=== PATIENT | male | born 1985 | race Caucasian/White ===

== ENCOUNTER 2017-04-06 15:15 | Inpatient (IN) | payer MEDICARE ==
--- NOTE | ~2017-04-06 | PN ---
Unit #: [id number] #: [id number] Patient: AMAN MCQUEEN [id number] [facility] [address] [place] [address] [id number] I MR#: [id number] NAME: AMAN MCQUEEN ROOM: P210 Age: 31 Sex: M Admission Date: 04/06/2017 : 1985 Attending Physician: Brennen Capps M.D. Admitting Physician: Brennen Capps M.D. Primary Care Physician: Primary Care Physician Alyssa MONTES DE OCA PROGRESS NOTES DATE 04/09/2017 DISCUSSION The patient is in somewhat brighter spirits today and is more active within the therapeutic milieu. He is expressing interest in going to the [facility] upon his discharge from the hospital and no longer seems interested in [facility] dual diagnosis residential treatment. Should he sustain progress discharge should take place within the next day or so. Dictated by... Brennen Capps M.D. CB/stephane TD: 04/09/2017 22:31 JOB #: [id number] [facility] PROGRESS NOTES Page 1 of 1 X Brennen Capps MD X PROGRESS NOTE
--- NOTE | ~2017-04-06 | PA ---
Unit #: [id number] #: [id number] Patient: AMAN MCQUEEN [id number] [place] [address] [id number] I MR#: [id number] NAME: AMAN MCQUEEN ROOM: P210 Age: 31 Sex: M Admission Date: 04/06/2017 : 1985 Date of Assessment: 04/07/2017 Attending Physician: Brennen Capps M.D. Admitting Physician: Brennen Capps M.D. Primary Care Physician: Primary Care Physician No PSYCHIATRIC ASSESSMENT IDENTIFYING INFORMATION The patient is a 31-year-old white male admitted to the [address] [place] [address] Unit with a history of polysubstance dependence. CHIEF COMPLAINT None given. INFORMANT(S) Patient, reliability is poor. HISTORY OF PRESENT ILLNESS The patient is a 31-year-old white male admitted with increasing substance use. The patient reports that he has been using heroin, methamphetamine, and alcohol. The patient reports a wish to go for residential chemical dependence treatment. He is denying suicidal or homicidal ideation. He was last discharged from this facility in August of 2015. The patient reports that his father has been supportive. He does report previous attempts at suicide but is currently denying suicidal or homicidal ideation. When seen today, the patient is resting comfortably and cannot be aroused for interview. PAST PSYCHIATRIC HISTORY The patient is reportedly prescribed Depakote (1) __ prescription on 03/05/2017. ALLERGIES Risperdal. FAMILY HISTORY Noncontributory. SOCIAL HISTORY The patient lives with his father. He is reportedly disabled secondary to psychiatric illness. MENTAL STATUS EXAMINATION Examination at this time reveals the patient to be a soundly sleeping white male. Multiple attempts to arouse him are unsuccessful. ASSETS AND LIABILITIES The patient's assets are to be assessed. Liabilities: Lack of resources. DIAGNOSTIC IMPRESSION Unit #: [id number] #: [id number] Patient: AMAN MCQUEEN 1. Schizoaffective disorder by history. 2. Alcohol use disorder. 3. Opioid use disorder. 4. Methamphetamine use disorder. TREATMENT PLAN The patient remains hospitalized for safety and stabilization. Routine detoxification protocol has been initiated. The patient will participate in appropriate order of milieu activities. ESTIMATED LENGTH OF STAY 5 to 7 days. I will ask the patient's medical social consultant to see him regarding possible referral for residential chemical dependence treatment. Dictated by... Ramirez Cisneros TD: 04/07/2017 12:46 JOB #: [id number] PSYCHIATRIC ASSESSMENT Page 1 of 1 X Brennen Capps MD X PSYCHIATRIC ASSESSMENT
--- NOTE | ~2017-04-06 | PN ---
Unit #: [id number] #: [id number] Patient: AMAN MCQUEEN [id number] [facility] [address] [place] [address] [id number] I MR#: [id number] NAME: AMAN MCQUEEN ROOM: P210 Age: 31 Sex: M Admission Date: 04/06/2017 : 1985 Attending Physician: Brennen Capps M.D. Admitting Physician: Brennen Capps M.D. Primary Care Physician: Primary Care Physician Alyssa MONTES DE OCA PROGRESS NOTES DATE 04/08/2017 DISCUSSION The patient is in brighter spirits today and is active within the therapeutic milieu. He is compliant with medications and figueredo routine and exhibits little in the way of signs or symptoms of withdrawal. He is expressing interest in dual diagnosis residential treatment and I will ask nursing home social worker to see him regarding possible referral to [facility]. Dictated by... Brennen Capps M.D. CB/stephane TD: 04/09/2017 03:38 JOB #: [id number] [facility] PROGRESS NOTES Page 1 of 1 X Brennen Capps MD PROGRESS NOTE
--- NOTE | ~2017-04-06 | DS ---
Unit #: [id number] #: [id number] Patient: AMAN MCQUEEN [id number] [facility] [address] [place] [address] [id number] MR#: [id number] NAME: AMAN MCQUEEN ROOM: P210 Age: 31 Sex: M Admission Date: 04/06/2017 : 1985 Discharge Date: 04/10/2017 Attending Physician: Brennen Capps M.D. Primary Care Physician: Primary Care Physician No DISCHARGE SUMMARY REASON FOR ADMISSION The patient is a 31-year-old white male with history of schizoaffective disorder and abuse of heroin, methamphetamine, and alcohol. HOSPITAL COURSE The patient was admitted to the [address] [place] [address] unit and continued on previously prescribed Depakote 500 mg b.i.d. given his complaints of psychosis. He was begun on Zyprexa 10 mg at h.s. and tolerated this medication well. His detox was a fairly uneventful one and by 04/10/2017, the patient had made arrangements to go to "the [facility]" for continued chemical dependency treatment. Discharge was ordered. FINAL DIAGNOSES Schizoaffective disorder; alcohol use disorder; methamphetamine use disorder; opioid use disorder. DISPOSITION ON DISCHARGE The patient is discharged on the following medications: Zyprexa 10 mg at bedtime for psychosis, Depakote 500 mg b.i.d. for mood stabilization. DISCHARGE INSTRUCTIONS No dietary or physical restrictions were placed upon the patient at the time of discharge. FOLLOWUP Followup will take place through the auspices of the [facility] and community mental health resources. PROGNOSIS The patient's prognosis is considered fair. Dictated by... Brennen Capps M.D. CB/fahad TD: 04/10/2017 15:38 JOB #: [id number] Unit #: [id number] #: [id number] Patient: AMAN MCQUEEN DISCHARGE SUMMARY Page 1 of 1 X Brennen Capps MD X DISCHARGE SUMMARY
--- NOTE | ~2017-04-06 | HP ---
Unit #: [id number] #: [id number] Patient: AMAN MCQUEEN [id number] [place] [address] [id number] I MR#: [id number] NAME: AMAN MCQUEEN ROOM: P210 Age: 31 Sex: M Admission Date: 04/06/2017 : 1985 Attending Physician: Brennen Capps M.D. Admitting Physician: Brennen Capps M.D. Primary Care Physician: Primary Care Physician No HISTORY AND PHYSICAL HISTORY OF PRESENT ILLNESS The patient is a 31-year-old male admitted to [address] [place] [address] on 04/06/2017 for substance abuse. PAST MEDICAL HISTORY 1. Polysubstance use. 2. Asthma. 3. COPD. 4. Nicotine dependence. PAST SURGICAL HISTORY The patient denies. SOCIAL HISTORY He is unemployed. He is disabled. He lives with his girlfriend, smokes 1 1/2 packs of cigarettes daily, drinks a pint of alcohol per day and uses marijuana, heroin and methamphetamines on a daily basis. FAMILY MEDICAL HISTORY Noncontributory. ALLERGIES Risperidone. CURRENT MEDICATIONS The patient is not on any home medications. REVIEW OF SYSTEMS CONSTITUTIONAL: No fever or chills. HEENT: Denies any sore throat, ear pain or runny nose. CARDIOVASCULAR: Denies chest pain, irregular heart rhythm or palpitations. CHEST: Denies shortness of breath or cough. No hemoptysis. GASTROINTESTINAL: Denies nausea, vomiting, diarrhea or chronic constipation. ENDOCRINE: Denies history of increased thirst or urination. No recent significant weight loss or gain. GENITOURINARY: Denies dysuria, frequency, or hematuria. SKIN: Denies any rashes. HEMATOLOGIC: Denies history of increased bleeding or bruising. MUSCULOSKELETAL: Denies any hot, swollen joints. No generalized muscle pain. NEUROLOGIC: Denies problems with vision or speech. No frequent, severe headaches. No numbness, tingling or weakness in any extremities. Denies Unit #: [id number] #: [id number] Patient: AMAN MCQUEEN loss of bladder or bowel control. PHYSICAL EXAM GENERAL: He is awake, alert and oriented in no acute distress. VITAL SIGNS: Temperature 97.4, heart rate 85, respiration 18, blood pressure 122/75. HEIGHT: 5'11". WEIGHT: 187 pounds. SKIN: Warm and dry without rash or lesion. HEENT: Normocephalic. TMs not viewed. Oral and nasal passages clear. Conjunctivae clear. PERRLA. EOMs intact. NECK: Supple without lymphadenopathy or thyromegaly. HEART: Regular rate and rhythm without murmur. LUNGS: Clear. ABDOMEN: Soft, nontender. : Not done. EXTREMITIES: No evidence of cyanosis, clubbing or edema. Moves all without focal deficit. NEUROLOGICAL: Grossly within normal limits. Cranial Nerves: II: Visual temple are intact. III, IV AND : Extraocular movements are intact. Pupils are equal, round and reactive to light. V: Facial sensation is grossly normal. VII: Facial movements and expression are normal. VIII: Auditory acuity grossly intact. IX, X: Uvula is midline. Phonation is normal. XI: Patient shrugs shoulders and turns head normally. XII: Tongue protrudes in the midline. Sensory and Motor Function: Sensory and motor sensation is grossly normal. Motor: moves all extremities well. IMPRESSION 1. Psychiatric admission. 2. Polysubstance use. 3. Asthma. 4. COPD. 5. Nicotine dependence. RECOMMENDATIONS Psychiatric per psychiatrist. MEDICAL: No contraindication to participate in facility activities. MEDICAL PROGNOSIS Good. MEDICAL CONDITION Stable. Dictated by... Sakina Thomas/stephane TD: 04/08/2017 00:15 Unit #: [id number] #: [id number] Patient: AMAN MCQUEEN JOB #: [id number] HISTORY AND PHYSICAL Page 1 of 1 X ESTELLA LEIGH APRN HISTORY AND PHYSICAL
[2017-04-07 12:15] LABS: BASOPHIL% 0.7 % (0-2.5); EOSINOPHIL# 0.2 X10e3 (0-0.7); EOSINOPHIL% 2.3 % (0.0-7.0); HEMATOCRIT 45.8 % (38.0-50.0); HEMOGLOBIN 15.3 gm/dL (13.0-16.0); LYMPHOCYTE# 1.9 X10e3 (1.0-3.5); LYMPHOCYTE% 28.1 % (17.0-45.0); MEAN CELL VOLUME 93.7 FL (83-96); MEAN CORPUSCULAR HEMOGLOBIN 31.3 PG (28-34); MEAN CORPUSCULAR HGB CONC 33.4 g/dL (30-36); MEAN PLATELET VOLUME 7.6 FL (6.5-11.5); MONOCYTE# 0.6 X10e3 (0-1.0); MONOCYTE% 9.1 % (3.0-12.0); NEUTROPHIL# 4.1 X10e3 (1.5-7.1); NEUTROPHIL% 59.8 % (40-75); PLATELET COUNT 259 X10e3 (140-420); RED BLOOD COUNT 4.89 X10e (3.90-5.60); RED CELL DISTRIBUTION WIDTH 12.9 % (11.0-15.5); WHITE BLOOD COUNT 6.9 X10e3 (4.0-10.5)
[2017-04-07 12:23] LABS: URINE APPEARANCE CLEAR; URINE BILIRUBIN NEG (NEG); URINE BLOOD NEG (NEG); URINE COLOR YELLOW; URINE GLUCOSE NEG (NEG); URINE KETONE NEG (NEG); URINE LEUKOCYTE ESTERASE NEG (NEG); URINE NITRATE NEG (NEG); URINE PH 6.5 (5-8); URINE PROTEIN NEG (NEG); URINE SPECIFIC GRAVITY 1.007 (1.003-1.035)
[2017-04-07 12:28] LABS: DIFF IND NO
[2017-04-07 12:39] LABS: ALBUMIN SERUM 3.6 g/dL (3.5-5.0); BILIRUBIN,TOTAL 0.4 mg/dL (0.2-2.0); BUN/CREATININE RATIO 7.77; CALCIUM SERUM 9.2 mg/dL (8.4-10.2); CREATININE SERUM 0.9 mg/dL (0.6-1.4); GLOM FILT RATE Estimated 114.2 mL/min (>60); POTASSIUM 4.4 mmol/L (3.5-5.1)
[2017-04-07 12:58] LABS: AMPHETAMINE POS (NEG); BARBITURATES NEG (NEG); BENZODIAZEPINES NEG (NEG); COCAINE NEG (NEG); MARIJUANA NEG (NEG); OPIATES NEG (NEG); TRICYCLIC ANTIDEPRESSANTS NEG (NEG); U METHADONE NEG (NEG)
== END 2017-04-10 14:20 | disposition home or self-care (01) | DRG 897 ==
LOC: P2S 17:16
PROVIDERS: Specialist
PROC: HZ2ZZZZ Detoxification Services for Substance Abuse Treatment (ICD-10-PCS; principal; 2017-04-06)
DX: F10.10 Alcohol abuse, uncomplicated (principal); F11.10 Opioid abuse, uncomplicated; F25.9 Schizoaffective disorder, unspecified; F15.10 Other stimulant abuse, uncomplicated; Z88.8 Allergy status to other drugs, medicaments and biological substances; Z91.5 Personal history of self-harm; J44.9 Chronic obstructive pulmonary disease, unspecified; F17.210 Nicotine dependence, cigarettes, uncomplicated
CPT/HCPCS: 80053; 80164; 80307; 81003; 85025; 86592

== ENCOUNTER 2017-04-12 17:00 | Inpatient (IN) | payer MEDICARE ==
--- NOTE | ~2017-04-12 | PA ---
Unit #: [id number] #: [id number] Patient: AMAN MCQUEEN [id number] [place] [address] [id number] I MR#: [id number] NAME: AMAN MCQUEEN ROOM: P176 Age: 31 Sex: M Admission Date: 04/12/2017 : 1985 Date of Assessment: 04/13/2017 Attending Physician: Brennen Capps M.D. Admitting Physician: Brennen Capps M.D. Primary Care Physician: Primary Care Physician No PSYCHIATRIC ASSESSMENT IDENTIFYING INFORMATION The patient is a 31-year-old white male just discharged from this facility reporting that he had recently relapsed on crack cocaine. He reported suicidal ideation at that time. INFORMANT(S) Patient and chart. RELIABILITY Fair. CHIEF COMPLAINT None given. HISTORY OF PRESENT ILLNESS The patient is a 31-year-old white male well known to this physician. He was just discharged from this facility earlier this week but apparently did not comply with prescribed medications or follow up. He had [facility] but did not do so and began using almost immediately. The patient was reporting positive auditory hallucinations and suicidal ideation at the time of admission. For a more complete history of present illness, please refer to previous dictated notes. PAST PSYCHIATRIC HISTORY Reviewed, no changes. FAMILY HISTORY/SOCIAL HISTORY Reviewed, no changes. MEDICAL HISTORY Reviewed, no changes. MEDICATION HISTORY 1. Depakote. 2. Zyprexa. ALLERGIES Risperdal. MENTAL STATUS EXAM At this time, reveals the patient to be a well-developed, well-nourished, disheveled white male appearing stated age. He is in no apparent physical Unit #: [id number] #: [id number] Patient: AMAN MCQUEEN distress at the time of examination. He is awake, alert, oriented in all spheres. His mood is dysphoric. His affect blunted. Speech is impoverished but generally relevant and coherent. There are no gross deficits in memory or cognition noted. Intelligence is judged to be in the average range based on fund of knowledge. The patient is cooperative throughout the interview. He is currently endorsing positive suicidal ideation. He denies homicidal ideation. He reports positive command hallucinations. His judgement and insight appear to be at baseline. ASSETS AND LIABILITIES Patient's assets to be assessed. Liabilities, lack of resources, ongoing substance use. ADMITTING DIAGNOSES 1. Cocaine use disorder. 2. Opioid use disorder. 3. Schizoaffective disorder. PSYCHIATRIC PLAN/TREATMENT GOALS The patient remains hospitalized for safety and stabilization. We will restart previously prescribed medications and will watch for any signs of withdrawal though none should be present given the brief time the patient was outside of the hospital. ESTIMATED LENGTH OF STAY Five to seven days. Dictated by... Brennen Capps M.D. TEGAN/beto TD: 04/13/2017 17:57 JOB #: [id number] PSYCHIATRIC ASSESSMENT Page 1 of 1 X Brennen Capps MD X PSYCHIATRIC ASSESSMENT
--- NOTE | ~2017-04-12 | DS ---
Unit #: [id number] #: [id number] Patient: AMAN MCQUEEN [id number] [facility] [address] [place] [address] [id number] MR#: [id number] NAME: AMAN MCQUEEN ROOM: [facility] Age: 31 Sex: M Admission Date: 04/12/2017 : 1985 Discharge Date: 04/16/2017 Attending Physician: Brennen Capps M.D. Primary Care Physician: Primary Care Physician No DISCHARGE SUMMARY REASON FOR ADMISSION The patient is a 31-year-old single white male admitted to the [address] [place] [address] with recurrence of opioid and methamphetamine use. HOSPITAL COURSE The patient was admitted to the [address] [place] [address] and continued on previous prescribed medications including Depakote and Zyprexa, Vistaril 50 mg q.6 hours p.r.n. anxiety was added. The patient's stay in the hospital was uneventful and he exhibited little in the way of signs or symptoms of withdrawal and by 04/06/2017 he requested discharge it was so ordered. FINAL DIAGNOSES 1. Schizoaffective disorder 2. Opioid use disorder 3. Methamphetamine use disorder DISPOSITION ON DISCHARGE The patient discharged on the following medication: 1. Depakote 500 mg twice daily for mood stabilization. 2. Zyprexa 10 mg nightly for psychosis. 3. Vistaril 50 mg q.6 hours for anxiety. No dietary or physical restrictions were placed on the patient at the time of discharge. Followup to take place through the auspices of community mental health resources. The patient's prognosis is considered fair. Dictated by... Brennen Capps M.D. CB/stephane TD: 04/17/2017 05:48 JOB #: [id number] Unit #: [id number] #: [id number] Patient: AMAN MCQUEEN DISCHARGE SUMMARY Page 1 of 1 X Brennen Capps MD X DISCHARGE SUMMARY
--- NOTE | ~2017-04-12 | PN ---
Unit #: [id number] #: [id number] Patient: AMAN MCQUEEN [id number] [facility] [address] [place] [address] [id number] MR#: [id number] NAME: AMAN MCQUEEN ROOM: P176 Age: 31 Sex: M Admission Date: 04/12/2017 : 1985 Attending Physician: Brennen Capps M.D. Admitting Physician: Brennen Capps M.D. Primary Care Physician: Primary Care Physician Alyssa MONTES DE OCA PROGRESS NOTES DATE 04/15/2017 DISCUSSION The patient is abed today. He is exhibiting little in the way or signs or symptoms of withdrawal and is beginning to push for discharge. I would suggest that he remain in the hospital for at least one further day and the patient is agreeabale. Dictated by... Brennen Capps M.D. CB/stephane TD: 04/15/2017 22:55 JOB #: [id number] [facility] PROGRESS NOTES Page 1 of 1 X Brennen Capps MD PROGRESS NOTE
--- NOTE | ~2017-04-12 | PN ---
Unit #: [id number] #: [id number] Patient: AMAN MCQUEEN [id number] [facility] [address] [place] [address] [id number] I MR#: [id number] NAME: AMAN MCQUEEN ROOM: 76 Age: 31 Sex: M Admission Date: 04/12/2017 : 1985 Attending Physician: Brennen Capps M.D. Admitting Physician: Brennen Capps M.D. Primary Care Physician: Primary Care Physician Alyssa MONTES DE OCA PROGRESS NOTES DATE 04/14/2017 DISCUSSION The patient reports upon his discharge from the hospital, he [facility] not [facility] because he "had to look after his girlfriend." He reports that he relapsed shortly thereafter but now states that he does plan to go to the [facility] upon his discharge from this facility. He is requesting Neurontin for anxiety. I have explained to the patient that this medication will not be ordered but will add p.r.n. Vistaril. Dictated by... Brennen Capps M.D. CB/beto TD: 04/14/2017 13:09 JOB #: [id number] [facility] PROGRESS NOTES Page 1 of 1 X Brennen Capps MD PROGRESS NOTE
--- NOTE | ~2017-04-12 | HP ---
Unit #: [id number] #: [id number] Patient: AMAN MCQUEEN [id number] [place] [address] [id number] MR#: [id number] NAME: AMAN MCQUEEN ROOM: P176 Age: 31 Sex: M Admission Date: 04/12/2017 : 1985 Attending Physician: Brennen Capps M.D. Admitting Physician: Brennen Capps M.D. Primary Care Physician: Primary Care Physician No HISTORY AND PHYSICAL HISTORY OF PRESENT ILLNESS Aman is a 31 year old admitted to [facility] because of his polysubstance abuse which includes IV methamphetamine and crack cocaine. PAST MEDICAL HISTORY 1. Long history of polysubstance abuse to include IV drugs. 2. Hepatitis C. PAST SURGICAL HISTORY Nothing reported. ALLERGIES Risperdal. SOCIAL HISTORY Smokes greater than 1 pack per day. Denies alcohol. Admits to a long history of illicit substance abuse to include crack cocaine and IV methamphetamine. FAMILY HISTORY Medically noncontributory. REVIEW OF SYSTEMS CONSTITUTIONAL: No fever or chills. HEENT: Denies any sore throat, ear pain or runny nose. CARDIOVASCULAR: Denies chest pain, irregular heart rhythm or palpitations. CHEST: Denies shortness of breath or cough. No hemoptysis. GASTROINTESTINAL: Denies nausea, vomiting, diarrhea or chronic constipation. ENDOCRINE: Denies history of increased thirst or urination. No recent significant weight loss or gain. GENITOURINARY: Denies dysuria, frequency, or hematuria. SKIN: Denies any rashes. HEMATOLOGIC: Denies history of increased bleeding or bruising. MUSCULOSKELETAL: Denies any hot, swollen joints. No generalized muscle pain. NEUROLOGIC: Denies problems with vision or speech. No frequent, severe headaches. No numbness, tingling or weakness in any extremities. Denies loss of bladder or bowel control. CURRENT MEDICATIONS 1. Milk of Magnesia p.r.n. 2. Maalox p.r.n. Unit #: [id number] #: [id number] Patient: AMAN MCQUEEN 3. Tylenol p.r.n. 4. Zyprexa 10 mg q.h.s. 5. Depakote 500 mg b.i.d. 6. Nicotine patch 21 mg daily. PHYSICAL EXAMINATION GENERAL: Alert, well-nourished, in no apparent distress. VITAL SIGNS: Blood pressure 120/64, heart rate 62, respirations 16, temperature 98.6. WEIGHT: 195. HEIGHT: 6 feet 0 inches. SKIN: Warm and dry without rash or lesion. HEENT: Normocephalic. TMs not viewed. Oral and nasal passages clear. Conjunctivae clear. PERRLA. EOMs intact. NECK: Supple without lymphadenopathy or thyromegaly. HEART: Regular rate and rhythm without murmur. LUNGS: Clear. ABDOMEN: Soft, nontender. : Not done. EXTREMITIES: No evidence of cyanosis, clubbing or edema. Moves all without focal deficit. NEUROLOGICAL: Grossly within normal limits. Cranial Nerves: II: Visual temple are intact. III, IV AND : Extraocular movements are intact. Pupils are equal, round and reactive to light. V: Facial sensation is grossly normal. VII: Facial movements and expression are normal. VIII: Auditory acuity grossly intact. IX, X: Uvula is midline. Phonation is normal. XI: Patient shrugs shoulders and turns head normally. XII: Tongue protrudes in the midline. Sensory and Motor Function: Sensory and motor sensation is grossly normal. Motor: moves all extremities well. Coordination: Gait is normal. Deep Tendon Reflexes: Intact. IMPRESSION Psychiatric admission. RECOMMENDATIONS PSYCHIATRIC: Per psychiatrist. MEDICAL: See no contraindications to participate in facility's activities. MEDICAL PROGNOSIS Good. MEDICAL CONDITION Stable. Dictated by... Janneth Montalvo P.A.-C. for Ramirez Kirk/beto TD: 04/13/2017 21:56 JOB #: [id number] Unit #: [id number] #: [id number] Patient: AMAN MCQUEEN HISTORY AND PHYSICAL Page 1 of 1 X Janneth Montalvo HISTORY AND PHYSICAL
[2017-04-15 13:21] LABS: AMPHETAMINE NEG (NEG); BARBITURATES NEG (NEG); BENZODIAZEPINES NEG (NEG); COCAINE NEG (NEG); MARIJUANA NEG (NEG); OPIATES NEG (NEG); TRICYCLIC ANTIDEPRESSANTS NEG (NEG); U METHADONE NEG (NEG)
== END 2017-04-16 15:30 | DRG 897 ==
LOC: P1E 19:23
PROVIDERS: Specialist
DX: F14.20 Cocaine dependence, uncomplicated (principal); F11.20 Opioid dependence, uncomplicated; F25.9 Schizoaffective disorder, unspecified; B19.20 Unspecified viral hepatitis C without hepatic coma; F17.210 Nicotine dependence, cigarettes, uncomplicated
CPT/HCPCS: 80164; 80307; 82140